=== PATIENT | female | born 1990 | race Caucasian/White ===

== ENCOUNTER 2024-11-17 10:29 | Outpatient (CLI) | payer BC, SELFPAY ==
[2024-11-18 23:14] LABS: HPV Source Cervix; HPV, High Risk by TMA Not Detected
== END 2024-11-17 10:30 | disposition home or self-care (01) ==
PROVIDERS: PCP Nurse Practitioner Family; Visit Provider Nurse Practitioner Family
DX: E04.1 Nontoxic single thyroid nodule (principal); R22.31 Localized swelling, mass and lump, right upper limb; Z13.0 Encounter for screening for diseases of the blood and blood-forming organs and certain disorders involving the immune mechanism; Z86.39 Personal history of other endocrine, nutritional and metabolic disease; Z83.2 Family history of diseases of the blood and blood-forming organs and certain disorders involving the immune mechanism; Z11.51 Encounter for screening for human papillomavirus (HPV); Z13.6 Encounter for screening for cardiovascular disorders; Z13.1 Encounter for screening for diabetes mellitus; Z11.3 Encounter for screening for infections with a predominantly sexual mode of transmission
CPT/HCPCS: 80061; 81241; 82947; 84443; 85025; 86376; 87624; 87625; 88141; 88142

== ENCOUNTER 2024-11-24 15:41 | Outpatient (CLI) | payer BC, SELFPAY | END 2024-11-24 15:42 | disposition home or self-care (01) | LOC: US 15:43 | PROVIDERS: PCP Nurse Practitioner Family; Visit Provider Nurse Practitioner Family | DX: E04.1 Nontoxic single thyroid nodule (principal) | CPT/HCPCS: 76536 ==

== ENCOUNTER 2025-05-10 12:48 | Outpatient (CLI) | payer BC, SELFPAY ==
--- NOTE | 2025-05-10 13:00 | CRLHL7_ITS ---
For Patients: As a result of the Cures Act, medical imaging exams and procedure reports are released immediately into your electronic medical record. You may view this report before your referring provider. If you have questions, please contact your health care provider. OB ULTRASOUND INDICATION: Dating and viability. TECHNIQUE: Real time grayscale imaging of the fetus was performed. Transvaginal. Transvaginal imaging performed to better demonstrate the endometrium and ovaries. LMP: 03/12/2025. ZAID by LMP: 12/17/2025. GA: 8 w, 3 d. Previous US: No. CRL: 1.6 cm. 8 w 0 d. ZAID: 12/20/2025. FHR: 161 BPM. Gestational sac: 2.8 cm. Appears within normal limits. Yolk sac: 2.9 mm. Appears within normal limits. Right ovary: 3.0 x 1.7 x 2.9 cm. CL. Left ovary: N/V. IMPRESSION: Single living intrauterine measuring 8 weeks 0 days and sonographic due date 12/20/2025. Quinton Cervantes M.D. Diagnostic Radiologist [email or web address] YUE/jose maria moise/Dictated by: Quinton Cervantes MD @ 05/10/2025 2:01:00 PM (Electronically Signed)
== END 2025-05-10 12:49 | disposition home or self-care (01) ==
LOC: US 12:48
PROVIDERS: PCP Nurse Practitioner Family; Visit Provider Registered Nurse
DX: Z34.91 Encounter for supervision of normal pregnancy, unspecified, first trimester (principal); Z3A.08 8 weeks gestation of pregnancy
CPT/HCPCS: 76817; 83021; 84443; 86592; 86703; 86704; 86706; 86762; 86787; 86803; 86850; 87086; 87340; 87491; 87591

== ENCOUNTER 2025-06-13 15:49 | Outpatient (CLI) | payer BC, SELFPAY ==
--- NOTE | 2025-06-13 15:45 | CRLHL7_ITS ---
For Patients: As a result of the Cures Act, medical imaging exams and procedure reports are released immediately into your electronic medical record. You may view this report before your referring provider. If you have questions, please contact your health care provider. OB ULTRASOUND FIRST TRIMESTER FOLLOW-UP BODY TRANSABDOMINAL INDICATION: Supervision of , history of demise December 2020. TECHNIQUE: Real time mendoza scale imaging of the fetus was performed. Transabdominal imaging performed. LMP: 03/12/2025. ZAID by LMP: 12/17/2025. GA: 13 w, 2 d. Previous US: Yes, 05/10/2025. ZAID by US: 12/20/2025. GA: 8 w, 0 d. CRL: 6.6 cm. 12 w 6 d. ZAID: 12/20/2025. FHR: 155 BPM. Gestational sac: 5.4 cm. Appears within normal limits. Yolk sac: N/V. Right ovary: Within normal limits. 4.5 x 2.4 x 3.5 cm. CL. Left ovary: N/V. IMPRESSION: 1. Single living intrauterine measures 12 weeks 6 days with sonographic due date 12/20/2025. 2. Corpus luteal cyst right ovary. Non-visualization of the left ovary. 3. No evidence of subchorionic hemorrhage. Quinton Cervantes M.D. Diagnostic Radiologist [email or web address] SP/Dictated by: Quinton Cervantes MD @ 06/13/2025 5:12:00 PM (Electronically Signed)
== END 2025-06-13 15:50 | disposition home or self-care (01) ==
LOC: US 15:49
PROVIDERS: PCP Nurse Practitioner Family; Visit Provider Registered Nurse
DX: O09.291 Supervision of pregnancy with other poor reproductive or obstetric history, first trimester (principal); O34.81 Maternal care for other abnormalities of pelvic organs, first trimester; N83.11 Corpus luteum cyst of right ovary; O20.9 Hemorrhage in early pregnancy, unspecified; Z3A.12 12 weeks gestation of pregnancy
CPT/HCPCS: 76801

== ENCOUNTER 2025-08-09 09:55 | Outpatient (CLI) | payer BC, SELFPAY | END 2025-08-09 09:56 | disposition home or self-care (01) | LOC: US 09:56 | PROVIDERS: PCP Nurse Practitioner Family; Visit Provider Registered Nurse | DX: O09.522 Supervision of elderly multigravida, second trimester (principal); Z3A.21 21 weeks gestation of pregnancy | CPT/HCPCS: 76811 ==

== ENCOUNTER 2025-09-20 14:39 | Outpatient (CLI) | payer BC, SELFPAY | END 2025-09-20 14:40 | disposition home or self-care (01) | LOC: US 14:39 | PROVIDERS: PCP Nurse Practitioner Family; Visit Provider Obstetrics & Gynecology | DX: Z87.59 Personal history of other complications of pregnancy, childbirth and the puerperium (principal); O43.112 Circumvallate placenta, second trimester; O09.522 Supervision of elderly multigravida, second trimester; Z3A.27 27 weeks gestation of pregnancy | CPT/HCPCS: 76816 ==

== ENCOUNTER 2025-10-03 08:05 | Outpatient (CLI) | payer BC, SELFPAY | END 2025-10-03 08:06 | disposition home or self-care (01) | LOC: NFLDREF 10-10 11:35 | PROVIDERS: PCP Nurse Practitioner Family; Referring Provider Nurse Practitioner Family; Visit Provider Obstetrics & Gynecology | DX: Z34.83 Encounter for supervision of other normal pregnancy, third trimester (principal) | CPT/HCPCS: 86780 ==